=== PATIENT | female | born 1960 | race Caucasian/White ===

== ENCOUNTER 2016-10-07 11:59 | Emergency (ER) | payer OTHER ==
[~2016-10-07] VITALS: Ht 162.6 cm; Wt 79.5 kg
[2016-10-07 12:00] VITALS: BP 133/73; PULSE 86; RESP 20; TEMP 97.5; O2SAT 95
--- NOTE | 2016-10-07 13:10 | PD ---
HPI Chief Complaint: Pain: Acute or Chronic Time Seen by Provider: 13:10 Travel History International Travel<30 days: No Contact w/Intl Traveler<30days: No Traveled to known affect area: No History of Present Illness HPI 56-year-old female, Hebrew-speaking and a little bit of Tunisian speaking, presents to the emergency department accompanied by family members with complaint of right shoulder pain 1 month. I asked the patient directly if family member can translate and she said yes. Reports heavy lifting and strain of shoulder after onset of shoulder pain. Otherwise denies traumatic injury. She has followed up with her primary care provider, Dr. Mccann, in regards to her complaint and has had an x-ray which was negative per family. She has been prescribed multiple medications which are not helping with her pain; I saw prescriptions for diclofenac, tramadol, and prednisone. The patient has also been scheduled for 2 MRIs which she has been unable to get done secondary to insurance not pre-approving the MRIs secondary to inaccurate initial diagnosis from the primary care provider. Her pain is getting worse and her right hand is mildly edematous. Denies paresthesias, loss of sensation. Reports decreased range of motion at the shoulder secondary to pain. The pain is also in her right upper back. Pain is aggravated with movement of the right arm. No known relieving factors. Denies fever, chills, nausea, vomiting. Allergies to aspirin. No other modifying factors or associated signs and symptoms. History Past Medical Histgory Medical History: Denies Significant Hx Social History Alcohol Use: No Tobacco Use: Yes (1ppd) Allergies-Medications (Allergen,Severity, Reaction): Coded Allergies: Aspirin (Verified Adverse Reaction, Severe, 10/07/16) GI UPSET Review of Systems Except as stated in HPI: all other systems reviewed are Neg Physical Exam Narrative GENERAL: Well-nourished, well-developed female patient, in no acute distress; afebrile, nontoxic-appearing SKIN: Warm and dry. HEAD: Atraumatic. Normocephalic. EYES: Pupils equal and round. No scleral icterus. No injection or drainage. ENT: Mucosa pink and moist. Airway patent. NECK: Supple. Trachea midline. CARDIOVASCULAR: Regular rate. RESPIRATORY: No accessory muscle use. GASTROINTESTINAL: Rounded. MUSCULOSKELETAL: No obvious deformities. No clubbing. No cyanosis. Right shoulder with limited range of motion; greater than 45 abduction; right shoulder with no obvious deformities; with tenderness on palpation to the anterior aspect; shoulders equal; without erythema or edema; joints stable. Right upper extremity is supple and non-tense with 2+ radial pulse and sensory intact. The right hand is mildly edematous when compared to the left; without erythema or warmth to touch. Equal mercury recoverer strength bilaterally. BACK: Reproducible tenderness over the right scapula to the trapezius muscle. NEUROLOGICAL: Awake and alert. Oriented 3. No obvious cranial nerve deficits. Motor grossly within normal limits. Normal speech. PSYCHIATRIC: Appropriate mood and affect; insight and judgment normal. Data Data Last Documented VS Vital Signs Date Time Temp Pulse Resp B/P Pulse Ox O2 Delivery O2 Flow Rate FiO2 10/07/16 12:00 97.5 86 20 133/73 95 Room Air MDM Medical Screen Exam Complete: Yes Emergency Medical Condition: No Differential Diagnosis Rotator cuff tear, arthritis, muscle spasm, muscle strain, shoulder strain Narrative Course 56-year-old female with right shoulder pain for the last month. She has followed up with her primary care provider, dr. Mccann, and has had an x-ray which was negative. She has been scheduled for 2 MRIs which they were unable to get done secondary to insurance not approving them secondary to primary care and initial diagnoses. She has prescriptions for diclofenac, tramadol, prednisone. Patient is afebrile and nontoxic-appearing. The right upper extremity is supple and nontender 2+ radial pulse and sensory intact. The right hand is mildly edematous and without erythema or signs of infection. I do not suspect fracture, dislocation, joint separation and feel that additional x-ray is necessary. Instructed patient and family to follow-up with MRI outpatient and to continue medications as prescribed. Vital signs are stable and the patient is stable for outpatient follow-up and treatment. The patient has no urgent or emergent medical complaints. There is no emergent or urgent medical need at this time. I instructed the patient to follow up with their primary care provider. A medical screening exam was performed: At the time of evaluation the presenting medical condition was determined not to be of an emergent nature. The patient was given the option of receiving additional care, but declined. Patient was given options for additional community resources from which to obtain care. The Patient Has Been advised to seek medical attention for their presenting complaint. The patient has been advised to return to the ER at any time if an emergent condition develops. Primary Impression: Encounter for medical screening examination Condition: Stable Dina Corral Oct 07, 2016 13:10
== END 2016-10-07 13:35 | disposition left against medical advice (07) ==
LOC: NEPB 11:59
DX: M25.511 Pain in right shoulder (principal); R60.0 Localized edema; M54.6 Pain in thoracic spine; F17.200 Nicotine dependence, unspecified, uncomplicated
CPT/HCPCS: 99281